=== PATIENT | female | born 1990 | race Two or more races ===

== ENCOUNTER 2023-10-24 11:04 | Emergency (ER) | payer MEDICAID, OTHER ==
[~2023-10-24] VITALS: Ht 170.2 cm; Wt 112.8 kg
[2023-10-24 11:20] VITALS: BP 100/42; PULSE 80; RESP 17; O2SAT 99
[2023-10-24 12:07] LABS: Basophils # (auto) 0 10 ^3/uL (0-0.2); Basophils % (auto) 0.3 % (0.0-2.0); Eosinophils # (auto) 0.1 10 ^3/uL (0-0.8); Eosinophils % (auto) 0.8 % (0.0-7.0); Hematocrit 35.2 % (36.0-46.0); Hemoglobin 11.7 g/dL (12.2-16.2); Lymphocytes # (auto) 2.4 10 ^3/uL (0.4-5.4); Lymphocytes % (auto) 21.2 % (10.0-50.0); Mean Corpuscular Hemoglobin 28.9 pg (28.0-32.0); Mean Corpuscular Hgb Conc. 33.3 g/dL (32.0-36.0); Mean Corpuscular Volume 86.9 fL (80.0-100.0); Monocytes # (auto) 0.5 10 ^3/uL (0-1.3); Monocytes % (auto) 4.4 % (0.0-12.0); Neutrophils # (auto) 8.3 10 ^3/uL (1.6-8.6); Neutrophils % (auto) 73.3 % (37.0-80.0); Platelet Count (auto) 345 10^3/uL (140-450); Red Blood Cells 4.05 10^6/uL (4.0-5.20); Red Cell Distribution Width 15.7 % (11.8-14.3); White Blood Cell 11.3 10^3/uL (4.4-10.8)
[2023-10-24 12:18] LABS: Albumin 3.8 g/dL (3.2-4.8); Alkaline Phosphatase 51 U/L (46-116); Anion Gap 4 (5-15); Aspartate Aminotransferase 8 U/L (13-40); Calcium 8.9 mg/dL (8.7-10.4); Carbon Dioxide 25 mmol/L (20-30); Chloride 108 mmol/L (98-107); Glucose 87 mg/dL (74-106); Lipase 39 U/L (12-53); Magnesium 1.7 mg/dL (1.6-2.6); Potassium 3.7 mmol/L (3.5-5.1); Sodium 137 mmol/L (136-145)
[2023-10-24 12:19] LABS: Bilirubin, Total 0.3 mg/dL (0.2-1.0); Total Protein 6.4 g/dL (5.7-8.2)
[2023-10-24 12:20] LABS: Alanine Aminotransferase < 9 U/L (7-40); BUN/Creatinine Ratio 10.6 (10.0-20.0); Blood Urea Nitrogen < 5 mg/dL (9-23)
[2023-10-24 12:27] LABS: Urine Bacteria FEW /hpf (None Seen); Urine Blood 1+ /uL (Negative); Urine Clarity Turbid (Clear); Urine Color Yellow (Yellow); Urine Mucus FEW (None Seen); Urine Protein, UAD TRACE (Negative); Urine Specific Gravity 1.023 (1.001-1.035); Urine Urobilinogen Normal (Negative); Urine WBC 21 /hpf (0 - 5); Urine pH 5.5 (5.0-9.0)
[2023-10-24] MEDS ORDERED: CEFD300C2 PO (15:08)
== END 2023-10-24 15:18 | disposition home or self-care (01) ==
LOC: ER 11:04
DX: O23.42 Unspecified infection of urinary tract in pregnancy, second trimester (principal); R10.2 Pelvic and perineal pain; N39.0 Urinary tract infection, site not specified; Z3A.14 14 weeks gestation of pregnancy; Z79.899 Other long term (current) drug therapy
CPT/HCPCS: 36415; 76705; 80053; 81001; 83690; 83735; 84702; 85025

== ENCOUNTER 2024-07-12 00:02 | Emergency (ER) | payer MEDICAID ==
[~2024-07-12] VITALS: Ht 167.6 cm; Wt 118.6 kg
[~2024-07-12 00:02] MED LIST: CEFD300C2 PO
[2024-07-12 01:11] VITALS: BP 122/58; PULSE 79; RESP 16; TEMP 98; O2SAT 96
[2024-07-12 01:40] LABS: Urine Bacteria None Seen /hpf (None Seen)
[2024-07-12 01:51] LABS: Urine Blood 1+ /uL (Negative); Urine Clarity Clear (Clear); Urine Color Light-Yellow (Yellow); Urine Protein, UAD Negative (Negative); Urine Specific Gravity 1.025 (1.001-1.035); Urine Squamous Epithelial Cell FEW /hpf (<5); Urine Urobilinogen Normal (Negative); Urine WBC 13 /HPF (0-5)
--- NOTE | 2024-07-12 02:21 | DVH ---
EXAM: CT LS SPINE WO CONTRAST HISTORY: MID TO LOWER BACK PAIN AFTER SPINAL BLOCK COMPARISON: None CTDIvol 20.53 mGy, DLP 791.88 mGy*cm. TECHNIQUE: Multiple axial CT images of the spine were obtained using bone algorithm. Axial and coron al reformatting was done. Bone and soft tissue windows were reviewed. FINDINGS: No CT evidence of definite acute fracture, spinal dislocation, or significant appearing acute subluxa tion is seen. The visualized paraspinal soft tissues are grossly unremarkable. IMPRESSION: 1. No definite CT evidence of acute fracture or dislocation of the bony lumbar spine.
--- NOTE | 2024-07-12 02:23 | DVH ---
EXAM: CT THORACIC SPINE WO CONTRAS HISTORY: MID TOLOW BACK PAIN AFTER SPINAL BLOCK STATUS POST COMPARISON: None CTDIvol 38.94 mGy, DLP 1445.64 mGy*cm. TECHNIQUE: Multiple axial CT images of the spine were obtained using bone algorithm. Axial and coron al reformatting was done. Bone and soft tissue windows were reviewed. FINDINGS: No CT evidence of definite acute fracture, spinal dislocation, or significant appearing acute subluxa tion is seen. The visualized paraspinal soft tissues are grossly unremarkable. IMPRESSION: 1. No definite CT evidence of acute fracture or dislocation of the bony thoracic spine.
--- NOTE | 2024-07-12 02:36 | ED.PDOC ---
Back pain HPI HPI Comments PT PRESENTED TO ED FOR SHARP, CONSTANT, UPPER TO LOWER BACK PAIN THAT RADIATES TO RLE X3 MONTHS AFTER . REPORTS INTERMITTENT LOWER EXTREMITY WEAKNESS AND NUMBNESS. DENIES SADDLE NUMBNESS OR LOSS OF BOWEL/BLADDER CONTROL Chief Complaint: Body Pain Time Seen by MD: 00:26 Reviewed Notes: Nurses Notes, Medications, Allergies Allergies: Coded Allergies: NO KNOWN ALLERGIES (Unverified , 10/24/23) Home Meds Active Scripts Cefdinir (Cefdinir) 300 Mg Cap, 1 CAP PO BID for 7 Days, #14 CAP Prov:JOSE DAVID VIEIRA MD 10/24/23 Information Source: Patient Mode of Arrival: Ambulatory Past Medical History PAST MEDICAL HISTORY: Denies Surgical History: Denies all surgeries DIVISION ORDER TECHNICIAN History: No Pertinent DIVISION ORDER TECHNICIAN History Family History Family History: Reviewed,noncontributory to illness Social History Smoker: Non-Smoker Alcohol: Denies ETOH Use Drugs: Denies Drug Use Lives In: Home Constitutional: reports: chills, diaphoresis, fatigue, fever, malaise, sweats, weakness, others EENTM: denies: blurred vision, double vision, ear bleeding, ear discharge, ear drainage, ear pain, ear ringing, eye pain, eye redness, hearing loss, mouth pain, mouth swelling, nasal discharge, nose bleeding, nose congestion, nose pain, photophobia, tearing, throat pain, throat swelling, voice changes, others Respiratory: denies: cough, hemoptysis, orthopnea, SOB at rest, shortness of breath, SOB with excertion, stridor, wheezing, others Cardiovascular: denies: chest pain, dizzy spells, diaphoresis, Dyspnea on exertion, edema, irregular heart beat, left arm pain, lightheadedness, palpitations, PND, syncope, others Gastrointestinal: denies: abdomen distended, abdominal pain, blood streaked bowels, constipated, diarrhea, dysphagia, difficulty swallowing, hematemesis, m tor, nausea, poor appetite, poor fluid intake, rectal bleeding, rectal pain, vomiting, others Genitourinary: denies: abnormal vagina bleeding, burning, dyspareunia, dysuria, flank pain, frequency, hematuria, incontinence, pain, , vagina discharge, urgency, others Neurological: denies: dizziness, fainting, headache, left sided numbness, left sided weakness, numbness, paresthesia, pre-existing deficit, right sided numbness, right sided weakness, seizure, speech problems, tingling, tremors, weakness, others Musculoskeletal: reports: back pain; denies: gout, joint pain, joint swelling, muscle pain, muscle stiffness, neck pain, others Integumetry: denies: bruises, change in color, change in hair/nails, dryness, laceration, lesions, lumps, rash, wounds, others Allergic/Immunocompromised: denies: Difficulty Healing, Frequent Infections, Hives, Itching, others Hematologic/Lymphatic: denies: anemia, blood clots, easy bleeding, easy bruising, swollen glands, others Endocrine: denies: excessive hunger, excessive sweating, excessive thirst, excessive urination, flushing, intolerance to cold, intolerance to heat, unexplained weight gain, unexplained weight loss, others Psychiatric: denies: anxiety, bipolar disorder, depression, hopeless, panic disorder, schizophrenia, sleepless, suicidal, others Physical Exam General Appearance: No Apparent Distress, Normal HEENT: Normal ENT Inspection, Pharynx Normal Neck: Full Range of Motion, Non-Tender Respiratory: Lungs Clear, No Respiratory Distress, Normal Breath Sounds Cardiovascular: No Murmur, Normal Peripheral Pulses, Regular Rate/Rhythm Breast Exam: Deferred Gastrointestinal: No Organomegaly, Non Tender, No Pulsatile Mass, Normal Bowel Sounds, Soft Genitalia: Deferred Pelvic: Deferred Rectal: Deferred Extremities: No calf tenderness, Normal capillary refill, Normal inspection, No rmal range of motion, Non-tender, No pedal edema Musculoskeletal : Location: Bilateral Extremity Location: Back (tenderness over T6-l2 spine, no crepitus or stepoffs) Apperance: Normal Neurologic: Alert, photogrammetric engineer II-XII nml as Tested, No Motor Deficits, Normal Affect, Normal Mood, No Sensory Deficits Cerebellar Function: Normal Reflexes: Normal Skin: Dry, Normal Color, Warm Lymphatic: No Adenopathy Was a procedure done? Was a procedure done?: No Back Pain Differential Dx Differential Diagnosis: Fracture, Musculoskeletal Pain, Strain X-Ray, Labs, Meds, VS Vital Signs Date Time Temp Pulse Resp B/P (MAP) Pulse Ox O2 Delivery O2 Flow Rate FiO2 07/12/24 01:11 98.0 79 16 122/58 (79) 96 98.0 Lab Test 07/12/24 01:39 Range/Units Urine Color Light-yellow Yellow Urine Clarity Clear Clear Urine pH 7.0 5.0-9.0 Urine Specific [place] 1.025 1.001-1.035 Urine Protein Negative Negative Urine Ketones Negative Negative Urine Blood 1+ H Negative /uL Urine Nitrite Negative Negative Urine Bilirubin Negative Negative Urine Urobilinogen Normal Negative mg/dL Urine Leukocyte Esterase 2+ Negative /uL Urine RBC 11 0 - 4 /hpf Urine Microscopic WBC 13 H 0-5 /HPF Urine Squamous Epithelial Cells Few <5 /hpf Urine Bacteria None seen None Seen /hpf Urine Glucose Normal Normal mg/dL X-Ray, Labs, Meds, VS Comment CT CHIN FOR ACUTE FINDINGS. UTI + FOR WBC'S, AND LUKS, WILL TREAT FOR INFECTION. SCRIPT ABX. TAKE MEDS PRESCRIBED S/E DISCUSSED . FOLLOW WITH PC IN 2 DAYS. ER RETURN PRECAUTIONS GIVEN Time of 1ST Reevaluation: 01:40 Reevaluation 1ST: Unchanged Time of 2ND Reevaluation: 02:42 Reevaluation 2ND: Improved Patient Education/Counseling: Diagnosis, Treatment, Prognosis, Need For Follow Up Family Education/Counseling: No Family Present Departure 1 Departure Time of Disposition: 02:38 Impression: Primary Impression: Urinary tract infection Qualified Codes: N30.00 - Acute cystitis without hematuria Disposition: 01 HOME / SELF CARE / HOMELESS Condition: Stable e-Prescriptions Diclofenac Sodium (Diclofenac Sodium Ec) 50 Mg Tab 1 TAB PO BID PRN for 6 Days, #12 TAB Prov: ELIZABETH MUNSON 07/12/24 Sulfamethoxazole W/Trimethopri (Bactrim Ds Tablet) 1 Tab Tb 1 TAB PO BID for 5 Days, #10 TAB Prov: ELIZABETH MUNSON 07/12/24 Discharged With: Self Critical Care Note Critical Care Time?: No Stability Stability form required: ELIZABETH Tierney Jul 12, 2024 02:36
[2024-07-12] MEDS ORDERED: DICL50TA4 PO (02:42)
[2024-07-12] MEDS ORDERED: BACDST PO (02:42)
[2024-07-12] MEDS ORDERED: CEPH500C PO (03:01)
== END 2024-07-12 03:02 | disposition home or self-care (01) ==
LOC: ER 00:02
DX: N39.0 Urinary tract infection, site not specified (principal); Z79.899 Other long term (current) drug therapy
CPT/HCPCS: 72128; 72131; 81001

== ENCOUNTER 2024-09-21 20:06 | Emergency (ER) | payer MEDICAID ==
[~2024-09-21] VITALS: Ht 170.2 cm; Wt 122.0 kg
[2024-09-21] MEDS: KETOROLAC TROMETH 60MG/2ML VIAL IM ONE (22:06)
[2024-09-21 22:11] VITALS: BP 107/66; PULSE 72; RESP 19; TEMP 98; O2SAT 98
--- NOTE | 2024-09-21 22:52 | ED.PDOC ---
History of Present Illness HPI Comments 34 y/o F presents with 1x day history of neck and upper back pain. Progressively worsening pain. Atraumatic and unprovoked onset. Denies any pertinent history. Denies any weakness, numbness, tingling, or further associated symptoms. Chief Complaint: Lower Extremity Time Seen by MD: 21:30 Reviewed Notes: Nurses Notes, Medications, Allergies Allergies: Coded Allergies: NO KNOWN ALLERGIES (Unverified , 10/24/23) Home Meds Active Scripts Cefdinir (Cefdinir) 300 Mg Cap, 1 CAP PO BID for 7 Days, #14 CAP Prov:JOSE DAVID VIEIRA MD 10/24/23 Information Source: Patient Mode of Arrival: Ambulatory Severity: Moderate Timing: Hours Duration: Since onset Prehospital treatment: None Past Medical History PAST MEDICAL HISTORY: Denies Surgical History: Denies all surgeries NURSE OBGYN History: No Pertinent NURSE OBGYN History Family History Family History: Reviewed,noncontributory to illness Social History Smoker: Non-Smoker Alcohol: Denies ETOH Use Drugs: Denies Drug Use Lives In: Home All Other Systems: Reviewed and Negative (Comprehensive systems review obtained and negative except for what is stated in the HPI.) Physical Exam General Appearance: No Apparent Distress, Obese HEENT: Normal ENT Inspection, Pharynx Normal, TMs Normal Neck: Full Range of Motion, Non-Tender, Normal, Normal Inspection Respiratory: Chest Non-Tender, Lungs Clear, No Accessory Muscle Use, No Respiratory Distress, Normal Breath Sounds Cardiovascular: No Edema, No JVD, No Murmur, No Gallop, Normal Peripheral Pulses, Regular Rate/Rhythm Breast Exam: Deferred Gastrointestinal: No Organomegaly, Non Tender, No Pulsatile Mass, Normal Bowel Sounds, Soft Genitalia: Deferred Pelvic: Deferred Rectal: Deferred Extremities: No calf tenderness, Normal capillary refill, Normal inspection, No rmal range of motion, Non-tender, No pedal edema Musculoskeletal : Location: Bilateral Extremity Location: Back (paraspinal regions) Apperance: Normal, Tenderness Neurologic: Alert, hris administrator II-XII nml as Tested, No Motor Deficits, Normal Affect, Normal Mood, No Sensory Deficits Cerebellar Function: Normal Reflexes: Normal Skin: Dry, Normal Color, Warm Lymphatic: No Adenopathy Was a procedure done? Was a procedure done?: No Differential Dx Considerations may include: fractures, dislocations, sprain, DDD, DJD, among others X-Ray, Labs, Meds, VS Vital Signs Date Time Temp Pulse Resp B/P (MAP) Pulse Ox O2 Delivery O2 Flow Rate FiO2 09/21/24 22:11 72 19 98 Room Air 09/21/24 22:11 98.0 72 19 107/66 (80) 98 98.0 09/21/24 20:06 97.8 87 18 115/54 97 97.8 Current Medications Medications (Trade) Dose Ordered Sig/Rachel Route Start Time Stop Time Status Last Admin Ketorolac Tromethamine (Toradol Injection) 60 mg ONCE ONCE IM 09/21/24 21:45 09/21/24 21:46 DC 09/21/24 22:06 Dexamethasone Sodium Phosphate (Decadron Injection) 10 mg ONCE ONCE IM 09/21/24 21:45 09/21/24 21:46 DC 09/21/24 22:07 Images Reviewed?: Images reviewed and evaluated by me Time of 1ST Reevaluation: 22:00 Reevaluation 1ST: Unchanged Time of 2ND Reevaluation: 23:20 Reevaluation 2ND: Improved Patient Education/Counseling: Diagnosis, Treatment, Need For Follow Up Family Education/Counseling: No Family Present SEPSIS Sepsis Screen Date sepsis recognized/suspect: Sep 21, 2024 Time Sepsis recognized/suspect: 2005 Recent Procedure: No On Antibiotic Therapy: No Respiratory Rate >20: No Heart Rate >90: No Temp<36 C (96.8 F) or >38.3 C: No SBP <90 or MAP <65 mmHG: No New Acute Mental Status Change: No Is the patient on CPAP, BIPAP,: No Physician Orders Spine Thoracic 2view (09/21/24 21:37) Lumbar Spine 3 View (09/21/24 21:37) Vital Signs Date Time Temp Pulse Resp B/P (MAP) Pulse Ox O2 Delivery O2 Flow Rate FiO2 09/21/24 22:11 72 19 98 Room Air 09/21/24 22:11 98.0 72 19 107/66 (80) 98 98.0 09/21/24 20:06 97.8 87 18 115/54 97 97.8 Medications Medications Dose Ordered Sig/Rachel Route Start Time Stop Time Status Last Admin Dose Admin Dexamethasone Sodium Phosphate 10 mg ONCE ONCE IM 09/21/24 21:45 09/21/24 21:46 DC 09/21/24 22:07 Ketorolac Tromethamine 60 mg ONCE ONCE IM 09/21/24 21:45 09/21/24 21:46 DC 09/21/24 22:06 Departure 1 Departure Time of Disposition: 23:19 Impression: Primary Impression: Strain of muscle and tendon of back wall of thorax, initial encounter Additional Impression: Sprain of ligaments of lumbar spine, initial encounter Disposition: HOME / SELF CARE / HOMELESS Condition: Stable e-Prescriptions Methylprednisolone (Medrol Dosepak) 4 Mg Frankie 4 MG PO UD for 6 Days, #21 TAB UAD Prov: ELIZABETH MUNSONP 09/21/24 Tizanidine Hydrochloride (Tizanidine Hydrochloride) 4 Mg Tab 4 MG PO BID PRN for 5 Days, #10 TAB Prov: ELIZABETH MUNSON [facility] 09/21/24 Discharged With: Self Critical Care Note Critical Care Time?: No Stability Stability form required: No Heart Score Heart Score: Heart Score Response (Comments) Value History N/A 0 EKG N/A 0 Age N/A 0 Risk Factors N/A 0 Troponin N/A 0 Total 0 I personally scribed for ER ([email or web address]) on 09/21/24 at 22:52. Electronically submitted by Yogesh Tafoya ([email or web address]). ER Sep 21, 2024 22:52 ELIZABETH MUNSON [facility] Sep 21, 2024 23:21
--- NOTE | 2024-09-21 23:15 | DVH ---
INDICATION: INJURY/PAIN COMPARISON: CT THORACIC SPINE WO CONTRAS on DOS: 07/12/24 TECHNIQUE:3 views of the thoracic spine were obtained. FINDINGS: The thoracic vertebral alignment is normal. The intervertebral disc spaces are well-maintained. No significant facet arthropathy is noted. No acute fracture, vertebral compression deformity or aggressive osseous lesions. The imaged thorax and abdomen are grossly unremarkable. IMPRESSION: 1. No acute fracture.
[2024-09-21] MEDS ORDERED: METH4PAK PO (23:20)
[2024-09-21] MEDS ORDERED: TIZA10TA PO (23:20)
--- NOTE | 2024-09-21 23:29 | DVH ---
XY LUMBAR SPINE 3 VIEW CLINICAL HISTORY: INJURY/PAIN COMPARISON: CT LS SPINE WO CONTRAST on DOS: 07/12/24 TECHNIQUE: 2 views of the lumbar spine FINDINGS: IMPRESSION: 1. [id number] multilevel degenerative changes of the lumbar spine. No acute fracture or listhes is. 2. Visualized portions of the soft tissue appear unremarkable.
== END 2024-09-21 23:42 | disposition home or self-care (01) ==
LOC: ER 20:06
DX: S33.5XXA Sprain of ligaments of lumbar spine, initial encounter (principal); S29.012A Strain of muscle and tendon of back wall of thorax, initial encounter; X58.XXXA Exposure to other specified factors, initial encounter; Y93.89 Activity, other specified; Y92.89 Other specified places as the place of occurrence of the external cause; Y99.8 Other external cause status
CPT/HCPCS: 72070; 72100; 96372; 99284; J1100; J1885